=== PATIENT | female | born 1950 | race Caucasian/White ===

== ENCOUNTER → 2017-07-12 | Outpatient (CLI) | payer MEDICARE, OTHER ==
[~2017-07-12] MED LIST: ADV100/50 INH; AMLO2.5T75 PO; ASPI-715 PO; CINN500C12 PO; CIPR-326 PO; ESOM40CA42 PO; ESTR-26 PO; FISH OIL1 CAP PO; FLU44R IH; HCTZ25 PO; LISI-368 PO; LISI1TAB86 PO; LOVA40TA PO; LOVA40TA89 PO; METF-420 PO; NIT4 SL; OXYGEN INH; PAN40 PO; RAN150 PO; VEN75 PO
--- NOTE | 2017-07-12 13:29 | RADIOLOGY IMAGING REPORT ---
FACILITY: [facility] PATIENT NAME: Fadia Chopra : 1950 MR: [id number] V: [id number] EXAM DATE: ORDERING PHYSICIAN: MATILDA KHAN TECHNOLOGIST: Location: [facility] [place] Patient: Fadia Chopra : 1950 Visit/Account:[id number] Date of Sevice: 07/12/2017 Exam type: CHEST PA AND LAT History: Shortness of breath and chest tightness Comparison: July 01, 2009. Findings: Is a small amount linear stranding in the lung bases which may be related to atelectasis and or scarr ing. There is mild blunting of left costophrenic angle consistent with pleural thickening versus sma ll left pleural effusion. There is no evidence of overt pulmonary edema. Cardiac swelling is normal in size. This focal area of increased density projecting over the anterior aspect of the left first rib appears similar to the prior study IMPRESSION: 1. Linear stranding lower lung mccann consistent with scarring versus atelectasis Blunting left costophrenic angle consistent with pleural thickening versus small left pleural effusio n Report Dictated By: Sherrie Cisneros MD at 07/12/2017 1:23 PM Report E-Signed By: Sherrie Cisneros MD at 07/12/2017 1:25 PM WSN:[id number]
== END ==
LOC: LAB 12:06
PROVIDERS: ATTEND Family Medicine
DX: J92.9 Pleural plaque without asbestos (principal); R91.8 Other nonspecific abnormal finding of lung field
CPT/HCPCS: 71046

== ENCOUNTER 2017-07-17 17:58 | Emergency (ER) | payer MEDICARE, OTHER ==
--- NOTE | 2017-07-17 18:06 | ER Report ---
History and Physical Time Seen By MD: 18:06 HPI/ROS CHIEF COMPLAINT: Short of breath HISTORY OF PRESENT ILLNESS: This is a 66-year-old female who presents to the emergency department for shortness of breath. Patient states that over the last 3 weeks she's had some increased shortness of breath has seen her provider Dr. Khan a couple of times and has been given antibiotics she is currently finishing a course of doxycycline. Patient states that they did do a chest x- ray which didn't reveal anything significant. She states that when she was at her provider's office her oxygen was at 82% on room air and "did nothing". Patient states that she felt okay yesterday and then last night had some increased shortness of breath she's had intermittent fevers with intermittent aches and chills. She also has a nonproductive cough. She denies chest pain. She denies headaches or rashes. Patient states she typically wears her oxygen only at night however over the last several days he's needed to use her oxygen during the day. While I'm in the exam room her oxygen is around 87% on room air. REVIEW OF SYSTEMS: Constitutional: As above. Eyes: No discharge. ENT: No sore throat. Cardiovascular: No chest pain, no palpitations. Respiratory: As above. Gastrointestinal: No abdominal pain, no vomiting. Genitourinary: No hematuria. Musculoskeletal: No back pain. Skin: No rashes. Neurological: No headache. Allergies: Coded Allergies: Yocasta (Verified Allergy, Mild, 10/07/09) Penicillins (Verified Allergy, Mild, 10/07/09) Uncoded Allergies: PCN (Allergy, Mild, 03/11/11) Home Meds Active Scripts Ipratropium/Albuterol Sulfate (IPRAT-ALBUT 0.5-3(2.5) MG/3 ML) 3 Ml Ampul.neb, 3 ML IH Q4-6H Y for prn, #1 BOX Prov:LOI SIMMONS [facility] 07/17/17 Prednisone (PREDNISONE) 20 Mg Tablet, 40 MG PO BID, #20 TAB Prov:LOI SIMMONS [facility] 07/17/17 Reported Medications Pindolol (PINDOLOL) 10 Mg Tablet, 10 MG PO 07/17/17 Aspirin (ASPIRIN) 81 Mg Tab.chew, 81 MG PO QDAY, TAB.CHEW 07/17/17 Pioglitazone Hcl (PIOGLITAZONE HCL) 15 Mg Tablet, 15 MG PO QDAY 07/17/17 Metoprolol Succinate (TOPROL XL) 50 Mg Tab.er.24h, 2 TAB PO QDAY, TAB 07/17/17 Nitroglycerin (Nitroquick) 0.4 Mg Subl, 0.4 MG SL PRN, 0 Refills 10/09/09 Ranitidine Hcl (Zantac) 150 Mg Tab, 150 MG PO BID, 0 Refills 10/09/09 Pantoprazole Sod (Protonix) 40 Mg Tabec, 40 MG PO BID, 0 Refills 10/09/09 Lisinopril (Lisinopril) 20 Mg Tablet, 20 MG PO QDAY, 0 Refills take with hydrochlorothiazide 10/09/09 Hydrochlorothiazide (Hydrochlorothiazide) 25 Mg Tab, 25 MG PO QDAY, 0 Refills take with lisinopril 10/09/09 Fluticasone Propionate (Flovent Hfa) 10.6 Gm Aer.w.adap, 110 MCG IH BID, 0 Refills 2 puffs, twice a day 10/09/09 Amlodipine Besylate (Norvasc) 2.5 Mg Tablet, 2.5 MG PO QDAY, 0 Refills 10/09/09 Oxygen (Oxygen) 2 L Inha, 2 L INH QHS, 0 Refills 10/07/09 [place]-3 Fatty Acids (Fish Oil) 1 Cap Capsule, 1 CAP PO DAILY, 0 Refills 10/07/09 Aspirin (Aspirin) 81 Mg Tablet.dr, 81 MG PO DAILY, 0 Refills 10/07/09 Venlafaxine Hcl (Effexor) 75 Mg Tab, 75 MG PO QDAY, 0 Refills 10/07/09 Metformin Hcl (Glucophage) 1,000 Mg Tablet, 1000 MG PO QDAY, 0 Refills 10/07/09 Pantoprazole Sod (Protonix) 40 Mg Tabec, 40 MG PO BID, 0 Refills 10/07/09 Discontinued Reported Medications Ranitidine Hcl (Zantac) 150 Mg Tab, 150 MG PO BID, 0 Refills 10/09/09 Cinnamon Bark (Cinnamon) 500 Mg Capsule, 500 MG PO DAILY, 0 Refills 10/07/09 Lovastatin (Lovastatin) 40 Mg Tablet, 80 MG PO QHS 10/07/09 Past Medical/Surgical History Patient has a past medical and surgical history of Hypertension, hypercholesterolemia, asthma, GERD, ovarian cysts, type II DM, tubal ligation, tonsillectomy. Reviewed Nurses Notes: Yes Hx Smoking: No Hx Substance Use Disorder: No Hx Alcohol Use: No Constitutional Physical Exam General Appearance: The patient is alert, has no immediate need for airway protection and no signs of toxicity. Eyes: Pupils equal and round no pallor or injection. ENT, Mouth: Mucous membranes are moist, posterior oropharynx erythema, mild tonsillar hypertrophy. Nose: erythema to inferior turbinates, clear nasal discharge. Respiratory: There are no retractions, lungs are clear to auscultation. Cardiovascular: Regular rate and rhythm, no murmurs clicks or rubs. Gastrointestinal: Abdomen is soft and non tender, no masses, bowel sounds normal. Neurological: Alert and oriented x4, moving all extremities, following all commands. No focal neuro deficits. Skin: Warm and dry, no rashes. Musculoskeletal: Neck is supple non tender. Extremities are nontender, nonswollen and have full range of motion. DIFFERENTIAL DIAGNOSIS: After history and physical exam differential diagnosis was considered for but not limited to pneumonia, influenza, strep throat, sinusitis, bronchitis and upper respiratory infection. Medical Decision Making Data Points Laboratory Hematology Test 07/17/17 18:10 07/17/17 18:14 Red Blood Count 5.01 M/uL (4.17-5.56) Mean Corpuscular Volume 81.1 fL (80.0-96.0) Mean Corpuscular Hemoglobin 27.6 pg (26.0-33.0) Mean Corpuscular Hemoglobin Concent 34.0 g/dL (32.0-36.0) Red Cell Distribution Width 15.1 % (11.5-14.5) Mean Platelet Volume 7.9 fL (7.2-11.1) Neutrophils (%) (Auto) 81.8 % (39.4-72.5) Lymphocytes (%) (Auto) 10.9 % (17.6-49.6) Monocytes (%) (Auto) 4.7 % (4.1-12.4) Eosinophils (%) (Auto) 1.8 % (0.4-6.7) Basophils (%) (Auto) 0.8 % (0.3-1.4) Nucleated RBC Relative Count (auto) 0.0 /100WBC Neutrophils # (Auto) 9.0 K/uL (2.0-7.4) Lymphocytes # (Auto) 1.2 K/uL (1.3-3.6) Monocytes # (Auto) 0.5 K/uL (0.3-1.0) Eosinophils # (Auto) 0.2 K/uL (0.0-0.5) Basophils # (Auto) 0.1 K/uL (0.0-0.1) Nucleated RBC Absolute Count (auto) 0.00 K/uL Sodium Level 139 mmol/L (137-145) Potassium Level 3.8 mmol/L (3.5-5.0) Chloride Level 100 mmol/L (98-107) Carbon Dioxide Level 23 mmol/L (22-31) Blood Urea Nitrogen 13 mg/dl (7-18) Creatinine 0.60 mg/dl (0.52-1.04) Glomerular Filtration Rate Calc > 60.0 Random Glucose 175 mg/dl (75-110) Calcium Level 9.2 mg/dl (8.4-10.2) Total Bilirubin 0.4 mg/dl (0.2-1.3) Aspartate Amino Transf (AST/SGOT) 24 U/L (0-35) Alanine Aminotransferase (ALT/SGPT) 37 U/L (0-56) Alkaline Phosphatase 85 U/L (0-126) Troponin I < 0.012 ng/ml Total Protein 6.7 gm/dl (6.3-8.2) Albumin 3.9 g/dl (3.5-5.0) Influenza Virus Type A (PCR) Negative (NEGATIVE) Influenza Virus Type B (PCR) Negative (NEGATIVE) Chemistry Test 07/17/17 18:10 07/17/17 18:14 White Blood Count 11.0 k/uL (4.5-11.0) Red Blood Count 5.01 M/uL (4.17-5.56) Hemoglobin 13.8 g/dL (12.0-16.0) Hematocrit 40.6 % (34.0-47.0) Mean Corpuscular Volume 81.1 fL (80.0-96.0) Mean Corpuscular Hemoglobin 27.6 pg (26.0-33.0) Mean Corpuscular Hemoglobin Concent 34.0 g/dL (32.0-36.0) Red Cell Distribution Width 15.1 % (11.5-14.5) Platelet Count 406 K/uL (150-450) Mean Platelet Volume 7.9 fL (7.2-11.1) Neutrophils (%) (Auto) 81.8 % (39.4-72.5) Lymphocytes (%) (Auto) 10.9 % (17.6-49.6) Monocytes (%) (Auto) 4.7 % (4.1-12.4) Eosinophils (%) (Auto) 1.8 % (0.4-6.7) Basophils (%) (Auto) 0.8 % (0.3-1.4) Nucleated RBC Relative Count (auto) 0.0 /100WBC Neutrophils # (Auto) 9.0 K/uL (2.0-7.4) Lymphocytes # (Auto) 1.2 K/uL (1.3-3.6) Monocytes # (Auto) 0.5 K/uL (0.3-1.0) Eosinophils # (Auto) 0.2 K/uL (0.0-0.5) Basophils # (Auto) 0.1 K/uL (0.0-0.1) Nucleated RBC Absolute Count (auto) 0.00 K/uL Glomerular Filtration Rate Calc > 60.0 Calcium Level 9.2 mg/dl (8.4-10.2) Total Bilirubin 0.4 mg/dl (0.2-1.3) Aspartate Amino Transf (AST/SGOT) 24 U/L (0-35) Alanine Aminotransferase (ALT/SGPT) 37 U/L (0-56) Alkaline Phosphatase 85 U/L (0-126) Troponin I < 0.012 ng/ml Total Protein 6.7 gm/dl (6.3-8.2) Albumin 3.9 g/dl (3.5-5.0) Influenza Virus Type A (PCR) Negative (NEGATIVE) Influenza Virus Type B (PCR) Negative (NEGATIVE) EKG/Imaging EKG Interpretation 12 lead EKG: EKG 1832. Rhythm: Normal sinus rhythm, ventricular rate 89 bpm. [place]: normal QRS: normal ST segments: No ST depression or elevation identified. Imaging Location: Patient: Fadia Chopra : 1950 Visit/Account:[id number] Date of Sevice: 07/17/2017 2 VIEWS CHEST INDICATION: Shortness of breath. Increased oxygen demand. COMPARISON: 07/12/2017. FINDINGS: Cardiomediastinal silhouette and pulmonary vessels within normal limits. There is no focal infiltrate or lobar consolidation. There is continued blunting left costophrenic angle. There are calcified angles well visualized. No pneumothorax or discrete nodule. Upper abdomen is unremarkable. No acute bony abnormality. IMPRESSION: 1. No acute cardiopulmonary process. 2. Continued blunting of the left costophrenic angle which could be secondary to small effusion or pleural thickening. Report Dictated By: José Iverson at 07/17/2017 7:04 PM Report E-Signed By: José Iverson at 07/17/2017 7:06 PM WSN:[id number] ED Course/Re-evaluation Clinical Indication for ER IV: IV Access ED Course The patient was admitted to a room. A history and physial were obtained. Differential diagnoses were considered. An IV was started. A CBC, CMP and Troponin were obtained. Lab studies unremarkable other than glucose of 175. Negative troponin. Negative influenza. EKG showing NSR. Two view chest X-Ray negative for any process as compared to previous Xray, could represent some pleural thickening or a small effusion. A dueneb was given in the ED with improvement in her symptoms. I did review the results with the patient. I did tell her this is likely an upper respiratory infection that is caused by a virus and will likely pass but will take some time. I did give her a steroid burst, with a dose starting in the ED. She was also given some duonebs to go home as well as a prescription. I did give her a list of the local providers as she is wanting to establish care elsewhere in [place], I did tell her she must follow up with her rn acute care as scheduled in the morning and establish care within the next 7-14 days for a follow up. Return to the ED if the symptoms are getting worse. Patient was in agreement with this plan of care. She will continue using her oxygen / until she follows up with pulmonology. Decision to Disposition Date: Jul 17, 2017 Decision to Disposition Time: 20:06 Depart Departure Latest Vital Signs Impression: Primary Impression: Shortness of breath Additional Impressions: Cough Upper respiratory infection Condition: Improved Disposition: HOME OR SELF-CARE Referrals: MATILDA KHAN DO (PCP) New Scripts Ipratropium/Albuterol Sulfate (IPRAT-ALBUT 0.5-3(2.5) MG/3 ML) 3 Ml Ampul.neb 3 ML IH Q4-6H Y for prn, #1 BOX Prov: LOI SIMMONS- 07/17/17 Prednisone (PREDNISONE) 20 Mg Tablet 40 MG PO BID, #20 TAB Prov: LOI SIMMONS 07/17/17 Patient Instructions: Acute Cough (ED), Upper Respiratory Infection (ED), Viral Syndrome (ED) Additional Instructions: Drink plenty of fluids. Get plenty of rest. Take the medications as prescribed. Be sure to follow-up tomorrow with pulmonology. I did give you a handout for local primary care providers please establish a new one within 7-14 days. May return to the emergency department for any other concerns or worsening symptoms. Problem Qualifiers Additional Impressions: Upper respiratory infection URI type: unspecified viral URI Qualified Codes: J06.9 - Acute upper respiratory infection, unspecified LOI SIMMONS HIGH PRESSURE OPERATOR- Jul 17, 2017 18:06
[2017-07-17] MEDS ORDERED: METO-233 PO (18:12)
[2017-07-17] MEDS ORDERED: PIOG15TA66 PO (18:12)
[2017-07-17] MEDS ORDERED: ASPI81TA94 PO (18:13)
[2017-07-17] MEDS ORDERED: PIND10TA2 PO (18:13)
[2017-07-17] MEDS ORDERED: ALBUTEROL/IPRATROPIUM 3 ML NEB NEB ONE ×2 (18:20→20:05)
--- NOTE | 2017-07-17 18:42 | EKG ---
[place] [facility] [place] NAME: DEXTER MARTIN : [id number] MR: [id number] V: [id number] EXAM DATE: ORDERING PHYSICIAN: LOI SIMMONS TECHNOLOGIST: [id number] Test Reason : SOB Blood Pressure : / mmHG Vent. Rate : 089 BPM Atrial Rate : 089 BPM P-R Int : 158 ms QRS Dur : 090 ms QT Int : 382 ms P-R-T Axes : 056 -15 034 degrees QTc Int : 464 ms Normal sinus rhythm Normal ECG No previous ECGs available Confirmed by ELINA TROTTER ([id number]) on 07/18/2017 7:30:56 AM Referred By: LOI Confirmed By:ELINA TROTTER
[2017-07-17 18:48] LABS: PLATELET COUNT, AUTOMATED 406 K/uL (150-450)
--- NOTE | 2017-07-17 19:10 | RADIOLOGY IMAGING REPORT ---
[place] [facility] [place] NAME: Fadia Chopra : 1950 MR: [id number] V: [id number] EXAM DATE: ORDERING PHYSICIAN: LOI SIMMONS TECHNOLOGIST: Location: [facility] Patient: Fadia Chopra : 1950 Visit/Account:[id number] Date of Sevice: 07/17/2017 2 VIEWS CHEST INDICATION: Shortness of breath. Increased oxygen demand. COMPARISON: 07/12/2017. FINDINGS: Cardiomediastinal silhouette and pulmonary vessels within normal limits. There is no focal infiltrate or lobar consolidation. There is continued blunting left costophrenic angle. There are calcified angles well visualized. No p neumothorax or discrete nodule. Upper abdomen is unremarkable. No acute bony abnormality. IMPRESSION: 1. No acute cardiopulmonary process. 2. Continued blunting of the left costophrenic angle which could be secondary to small effusion or pl eural thickening. Report Dictated By: José Iverson at 07/17/2017 7:04 PM Report E-Signed By: José Iverson at 07/17/2017 7:06 PM WSN:[id number]
[2017-07-17] MEDS ORDERED: predniSONE 20 MG TAB PO ONE (20:05)
[2017-07-17] MEDS ORDERED: IPRA3AMP21 IH (20:11)
[2017-07-17] MEDS ORDERED: PRED20TA6 PO (20:11)
[2017-07-17 20:21] VITALS: BP 132/85
== END 2017-07-17 20:36 | disposition home or self-care (01) ==
LOC: ER 18:04
DX: J06.9 Acute upper respiratory infection, unspecified (principal); R05 Cough
CPT/HCPCS: 71046; 84484; 85025; 87502; 93005; 94640; 99284; J7512; J7620; 82040; 82247; 82310; 82374; 82435; 82565; 82947; 84075; 84132; 84155; 84295; 84450; 84460; 84520